=== PATIENT | male | born 1975 | race Caucasian/White ===

== ENCOUNTER 2021-09-26 07:48 | Emergency (ER) | payer MEDICARE, SELFPAY ==
--- NOTE | 2021-09-26 07:45 | RT.EKG_ITS ---
APPROVED REPORT Exam: Resting ECG Reason for Exam: CP Patient Location: E HR:92 bpm ECG Measurements Heart Rate 92 AXIS AK 191 P 2 QRSd 95 QRS -61 QT 349 T 3 QTc 432 Conclusion Sinus rhythm...normal P axis, V-rate 60- 99 Inferior Q >35mS, II III aVF
[2021-09-26 07:52] VITALS: BP 141/92; PULSE 91; RESP 17; TEMP 36.5; O2SAT 96
--- NOTE | 2021-09-26 08:00 | DI.RAD_ITS ---
Exam(s) XR CHEST 2V PA LATERAL EXAM: XR CHEST 2V PA LATERAL CLINICAL HISTORY: central chest pressure. TECHNIQUE: 2D digital imaging was performed. COMPARISON: No exams were available for comparison FINDINGS: 2 views: Heart size is normal. The mediastinum is not widened. Lungs are clear. No infiltrates nor pleural effusions. Right shoulder prosthesis. IMPRESSION: No acute pulmonary findings. DATA REPOSITORY: RADIATION DOSE DELIVERED:
--- NOTE | 2021-09-26 08:15 | ED.GENADUL_ITS ---
Discharge Plan Disposition Patient Disposition: HOME Condition: Improving Discharge Details Clinical Impression: Acute Lyme disease Primary Care Provider: [facility] ED Provider: Hussein Roche Home Meds and New Rx's Prescriptions: Continued atorvastatin 20 mg Tablet 20 mg PO DAILY zolpidem [Ambien] 10 mg Tablet 12.5 mg PO ONCE PM insulin glargine [Lantus Solostar U-100 Insulin] 100 unit/mL (3 mL) Insulin Pen 45 unit SUBCUT BID Jardiance 10 mg Tablet 25 mg PO DAILY doxycycline hyclate 50 mg Tablet 100 mg PO BID Discharge Instructions Additional Instructions: May continue Tylenol and nonsteroidal medication as you have been. Your work-up today included chest x-ray, cardiac enzymes, screening blood work. Continue your doxycycline. Follow-up with with regular doctor for recheck if not improving in 4 to 5 days time. Return to ER for any acute concerns. Medical Decision Making 46-year old male presents with history of tick bite and subsequent bull's-eye rash approximately 10 to 14 days ago, diagnosed with Lyme disease approximately 3 days ago and started on doxycycline at the [place]. He has had 1 week of body ache, fever, chills, joint ache. He has not had a cough. He is immunized against COVID. This morning he walked outside and developed central chest pressure that radiated to his back and slowly dissipated over approximately 1 hour. He arrives to the ER alert and interactive, in no significant distress, his blood pressure noted 141/92 with a pulse in the 90s, he is afebrile and oxygenating normally. His initial EKG shows a normal sinus rhythm without acute ischemic changes. Records requested from the [place] to confirm patient's medications. 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 Differential diagnosis today includes carditis, ACS, pericarditis, PE, general flulike illness and active Lyme disease. Patient had IV access established, screening laboratories obtained, EKG and chest x-ray ordered. Patient's medications were reconciled with his pharmacy and he is taking appropriate dose of doxycycline. Chest x-ray is unremarkable. 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 Note of glucose 247. Patient served on nurse monitoring, repeat troponin obtained and negative. Patient improved. This is consistent with acute Lyme disease for which he is receiving appropriate treatment. He is stable for discharge without evidence of cardiac involvement. Discussed with him home management and he will follow-up with his primary care physician. Lab Data Lab results reviewed: Yes I reviewed the patient's lab results. Labs: Laboratory Results - last 24 hr 09/26/21 09/26/21 08:05 08:05 PT 9.3 INR 0.9 APTT 22.7 D-Dimer 196 Sodium 138 Potassium 4.5 Chloride 103 Carbon Dioxide 24.9 Anion Gap 10.1 BUN 16 Creatinine 1.1 Estimated GFR/1.73 m2 >= 60.00 Glucose 247 H Calcium 9.0 Magnesium 2.0 Total Bilirubin 0.6 AST 14 L ALT 27 Alkaline Phosphatase 76 Creatine Kinase 150 Troponin I < 50 C-Reactive Protein 0.15 Total Protein 7.6 Albumin 3.6 HPI General Mode of arrival: ambulatory . Date/Time Provider Initiated Documentation: 09/26/21 07:58 . Limitations to Documentation: no limitations . Information obtained by: patient . History of Present Illness 46 year old M presents to the emergency department with the chief complaint of Fever, chills, body ache, chest pain this morning, described as moderate, and is localized to the chest. Patient reports radiation to back. Patient started experiencing this hour(s) and it has been now resolved. No relieving factors improve symptom(s), No exacerbating factors reported . Patient notes chest pain, cough, diaphoresis, fever/chills, nausea/vomiting and weakness; denies shortness of breath. Patient did receive the following treatments prior to arrival, other (Taking doxycycline x2 days) Related Data Home Medications Medication Instructions Recorded Confirmed atorvastatin 20 mg tablet 20 mg PO DAILY 09/26/21 09/26/21 doxycycline hyclate 50 mg tablet 100 mg PO BID 09/26/21 09/26/21 empagliflozin 10 mg tablet 25 mg PO DAILY 09/26/21 09/26/21 (Jardiance) insulin glargine 100 unit/mL (3 45 unit subcut BID 09/26/21 09/26/21 mL) subcutaneous pen (Lantus Solostar U-100 Insulin) zolpidem 10 mg tablet (Ambien) 12.5 mg PO ONCE PM 09/26/21 09/26/21 Allergies Allergy/AdvReac Type Severity Reaction Status Date / Time No Known Allergies Allergy Unverified 09/26/21 07:54 General Stated Complaint: Chest Pain KATIE: 3 Review of Systems Narrative: Had bull's-eye rash, positive Lyme test, on doxycycline x2 days. Positive fever, chills, nausea, body ache, joint aches....denies cough. 8 systems were reviewed and otherwise negative. PFSH All Active Problems (Updated 09/26/21 @ 11:46 by Hussein Roche MD) Acute Lyme disease (Acute) Social History Smoking/Tobacco Use Status: Never Smoking risk assessment performed?: Yes Alcohol Intake: current Alcohol Intake frequency: a few times a month Substance use type: does not use Do you feel safe at home: Yes Do you feel safe in your relationship?: Yes Exam Narrative Exam Narrative: GEN: awake, alert, oriented 3. Pleasant, well groomed, interactive. HEAD: Normocephalic, atraumatic ENT: Mucous membranes moist, oropharynx unremarkable, External ear exam unremarkable EYES: PERRL, EOMI NECK: Full ROM, no SELAM, no menigismus CHEST/RESP: Nontender, clear to auscultation bilateral, no wheeze/rhonchi/rales CARDIOVASCULAR: RRR, no murmur, rub belinda. 2+ Rad pulse bilateral ABDOMEN: Soft, nontender, no mass. +Bowel sounds EXT: Full ROM, no edema, faint erythematous resolving rash approximately 1 to 2 cm left axilla Neuro: Grossly normal neurologic exam, conversant, interactive. Psych: Speech fluent, thoughts congruent, affect normal Course Vital Signs Vital signs: Vital Signs Temperature 36.5 C 09/26/21 07:52 Pulse 91 H 09/26/21 07:52 Respiratory Rate 17 09/26/21 07:52 Blood Pressure 141/92 H 09/26/21 07:52 Pulse Oximetry 96 09/26/21 07:52 Temperature 36.5 C 09/26/21 07:52 Pulse 91 H 09/26/21 07:52 Respiratory Rate 17 09/26/21 07:52 Respiratory Effort 09/26/21 07:59 Respiratory Depth Normal 09/26/21 07:59 Respiratory Pattern Normal 09/26/21 07:59 Blood Pressure 141/92 H 09/26/21 07:52 Pulse Oximetry 96 09/26/21 07:52 Pain Level 6 09/26/21 07:59
[2021-09-26] MEDS: Ondansetron 4 MG/2 ML VIAL IVP (08:25)
[2021-09-26] MEDS: ACETAMINOPHEN 1,000 MG/100 ML BTL 400 MG IVPB (08:25)
[2021-09-26] MEDS: Aspirin 81 MG CHEW 324 MG CH (08:26)
[2021-09-26] MEDS: Normal Saline 1,000 ML 1000 ML IV (08:26)
[2021-09-26 08:27] LABS: Abs Immature Grans 0.03 10^3/uL (0.0-0.06); HCT 51.5 % (40.0-50.0); HGB 17.1 g/dL (13.5-17.5); MCH 27.5 pg (27.0-33.0); MCHC 33.2 % (32.0-36.0); MCV 83 fL (80-95); MPV 11.1 fL (8.0-11.0); RDW 14.4 % (11.8-14.1); RDW-SD 42.1 fL; WBC 10.07 10^3/uL (4.4-10.8)
[2021-09-26 08:31] VITALS: BP 131/62; PULSE 80; RESP 18; O2SAT 95
[2021-09-26 08:42] LABS: INR 0.9 (0.9-1.1); PTT Activated 22.7 sec (21.0-27.5); Prothrombin Time 9.3 sec (9.3-11.0)
[2021-09-26 08:47] LABS: ALT 27 U/L (16-63); AST 14 U/L (15-37); Albumin 3.6 g/dL (3.4-5.0); Alkaline Phosphatase 76 U/L (46-116); Anion Gap 10.1 mmol/L (3-11); BUN 16 mg/dL (7-18); Bilirubin, Total 0.6 mg/dL (0.2-1.0); C-Reactive Protein 0.15 mg/dL (0.0-0.3); CO2 24.9 mmol/L (21.0-32.0); CREATININE 1.1 mg/dL (0.70-1.30); Chloride 103 mmol/L (98-107); Creatine Kinase 150 U/L (39-308); Glucose 247 mg/dL (74-106); Potassium 4.5 mmol/L (3.5-5.1); Sodium 138 mmol/L (136-145); Total Protein 7.6 g/dL (6.4-8.2); Troponin I < 50 ng/L (<or=60)
[2021-09-26 08:58] LABS: D-Dimer 196 ng/mlFEU (<500)
[2021-09-26 09:25] LABS: Absolute Lymphocyte Count 2.32 10^3/uL (1.2-3.4); Absolute Neutrophil Count 6.95 10^3/uL (1.2-6.7); Atypical Lymphocytes % 3; Platelet Count 350 10^3/uL (130-400); RBC 6.22 10^6/uL (4.36-5.78)
[2021-09-26 09:26] LABS: Diff Comment Manual Differential; RBC Morphology Normal
[2021-09-26] MEDS: Ketorolac 15 MG/ML VIAL IVP (09:35)
[2021-09-26 09:37] VITALS: BP 137/75; PULSE 78; RESP 17; TEMP 37; O2SAT 93
[2021-09-26] MEDS: Lactated Ringers 1,000 ML 1000 ML IV (09:45)
[2021-09-26 10:41] VITALS: BP 127/70; PULSE 80; RESP 15; TEMP 37; O2SAT 95
--- NOTE | 2021-09-26 10:45 | RT.EKG_ITS ---
APPROVED REPORT Exam: Resting ECG Reason for Exam: Patient Location: E HR:81 bpm ECG Measurements Heart Rate 81 AXIS [place] 205 P 25 QRSd 96 QRS -52 QT 364 T -3 QTc 423 Conclusion Sinus rhythm...normal P axis Inferior infarct Q >35mS, II III aVF
--- NOTE | 2021-09-26 10:46 | NUR.NOTE ---
all meds and fluid were given through the right AC there was never a left ACNursing Note:
[2021-09-26 11:31] LABS: Troponin I < 50 ng/L (<or=60)
== END 2021-09-26 12:08 | disposition home or self-care (01) ==
PROVIDERS: Emergency Provider Emergency Medicine
DX: A69.20 Lyme disease, unspecified (principal); R07.89 Other chest pain; E11.9 Type 2 diabetes mellitus without complications
CPT/HCPCS: 36415; 36416; 80053; 82550; 82962; 93005; 96361; 96365; 96375; 99284; 71046; 83735; 84484; 85025; 85379; 85610; 85730; 86140; 93010; J0131; J1885; J2405